=== PATIENT | male | born 1950 | race Caucasian/White ===

== ENCOUNTER → 2016-04-24 | Outpatient (CLI) | payer MEDICARE ==
[~2016-04-24] VITALS: Ht 162.6 cm; Wt 98.1 kg
[~2016-04-24] MED LIST: AUD NEB; IPRNEB NEB; PRED20 PO
[2016-04-24 09:08] VITALS: BP 138/82
== END | disposition home or self-care (01) ==
LOC: SRCNTR 09:05
PROVIDERS: ATTEND Internal Medicine
DX: J44.9 Chronic obstructive pulmonary disease, unspecified (principal); R79.81 Abnormal blood-gas level; Z57.2 Occupational exposure to dust
CPT/HCPCS: G0463

== ENCOUNTER → 2016-04-25 | Outpatient (CLI) | payer MEDICARE ==
[2016-04-25 10:38] LABS: ABG A-A DIFF O2 6.3 mmHg (10-20.0); ABG HCO3 25.4 mmol/L (22.0-26.0); ABG OXYHEMOGLOBIN 96.9 % (94.0-100.0); ABG PCO2 40 mmHg (35-45); ABG PH 7.425 (7.35-7.450); ALLEN TEST, BLOOD GAS Positive; TEMPERATURE, FAHRENHEIT, BG 98.6 FAHREN (96.0-98.6)
== END | disposition home or self-care (01) ==
LOC: RESP 10:19
PROVIDERS: ATTEND Internal Medicine
DX: J44.9 Chronic obstructive pulmonary disease, unspecified (principal); Z57.2 Occupational exposure to dust
CPT/HCPCS: 82805

== ENCOUNTER → 2016-07-03 | Outpatient (CLI) | payer MEDICARE ==
[~2016-07-03] VITALS: Ht 162.6 cm; Wt 80.5 kg
[2016-07-03 15:11] VITALS: BP 158/92
== END | disposition home or self-care (01) ==
LOC: SRCNTR 13:04
PROVIDERS: ATTEND Internal Medicine
DX: J44.9 Chronic obstructive pulmonary disease, unspecified (principal); J96.10 Chronic respiratory failure, unspecified whether with hypoxia or hypercapnia; I10 Essential (primary) hypertension; Z99.81 Dependence on supplemental oxygen; Z79.52 Long term (current) use of systemic steroids; Z57.1 Occupational exposure to radiation
CPT/HCPCS: G0463

== ENCOUNTER → 2016-10-02 | Outpatient (CLI) | payer MEDICARE ==
[~2016-10-02] VITALS: Ht 162.6 cm; Wt 83.0 kg
[2016-10-02 12:43] VITALS: BP 144/80
== END | disposition home or self-care (01) ==
LOC: SRCNTR 12:27
PROVIDERS: ATTEND Internal Medicine
DX: J44.9 Chronic obstructive pulmonary disease, unspecified (principal); J96.10 Chronic respiratory failure, unspecified whether with hypoxia or hypercapnia; Z79.52 Long term (current) use of systemic steroids; Z99.81 Dependence on supplemental oxygen; Z77.012 Contact with and (suspected) exposure to uranium
CPT/HCPCS: G0463

== ENCOUNTER 2017-03-19 20:47 | Inpatient (IN) | payer MEDICARE ==
[~2017-03-19] VITALS: Ht 175.3 cm; Wt 78.8 kg
[2017-03-19] MEDS ORDERED: IPRATROPIUM BROMIDE 0.5 MG/2.5 ML NEB SOLUTION NEB ONE (21:00)
[2017-03-19] MEDS ORDERED: ALBUTEROL SULFATE 5 MG/ML 20 ML NEB SOLN [BULK] NEB ONE (21:00)
[2017-03-19] MEDS ORDERED: PRED5 PO (21:02)
[2017-03-19] MEDS ORDERED: CLON.2 PO (21:02)
[2017-03-19] MEDS ORDERED: METO50 PO (21:02)
[2017-03-19] MEDS ORDERED: ALBU8.5H8 IH (21:02)
[2017-03-19] MEDS ORDERED: HYDR-4069 PO (21:02)
[2017-03-19] MEDS ORDERED: 0.9% SODIUM CHLORIDE 5 ML NEB SOLUTION NEB ONE (21:05)
[2017-03-19 22:05] LABS: BASOPHILS % (AUTO) 0.3 % (0.0-2.0); EOSINOPHILS % (AUTO) 6.1 % (1.0-6.0); HEMATOCRIT 43.3 % (41-53); HEMOGLOBIN 14.7 g/dL (13.5-17.5); LYMPHOCYTES # (AUTO) 1.8 K/uL (1.0-4.8); LYMPHOCYTES % (AUTO) 25.6 % (22.0-44.0); MEAN CORPUSCULAR HEMOGLOBIN 31.3 pg (26.0-34.0); MEAN CORPUSCULAR VOLUME 92 fL (80-100); MONOCYTES # (AUTO) 0.8 K/uL (0.1-1.0); NEUTROPHILS # (AUTO) 3.9 K/uL (1.8-7.7); PLATELET COUNT (AUTO) 235 K/uL (150-450); RED CELL DISTRIBUTION WIDTH 14.1 % (11.5-14.5)
[2017-03-19 22:14] LABS: ANION GAP 11 mmol/L (8-16); CALCIUM, TOTAL 9.6 mg/dL (8.8-10.5); CARBON DIOXIDE 27 mmol/L (22-29); CHLORIDE 99 mmol/L (98-107); CREATININE 0.86 mg/dL (0.60-1.30); GLOMERULAR FILTR. RATE CALC > 60 mL/min (>60); GLUCOSE,RANDOM 77 mg/dL (70-110); POTASSIUM 3.6 mmol/L (3.5-5.1); SODIUM SERUM 137 mmol/L (136-145); UREA NITROGEN, BLOOD 7 mg/dL (7-18)
[2017-03-19 22:21] LABS: ALANINE AMINOTRANSFERASE 25 U/L (12-78); ALBUMIN 4.5 g/dL (3.4-5.0); ALKALINE PHOSPHATASE 66 U/L (46-116); ASPARTATE AMINOTRANSFERASE 19 U/L (15-37); BILIRUBIN,TOTAL 0.8 mg/dL (0.1-1.0); TOTAL PROTEIN, SERUM 7.8 g/dL (6.4-8.2)
[2017-03-19 22:41] LABS: B-TYPE NATRIURETIC PEPTIDE 16 pg/mL (0-100)
[2017-03-19] MEDS ORDERED: MAGNESIUM HYDROXIDE SUSPENSION 30 ML UDCUP PO PRN (22:45)
[2017-03-19] MEDS ORDERED: ACETAMINOPHEN 325 MG TABLET PO PRN (22:45)
[2017-03-19] MEDS: ALBUTEROL SULFATE 2.5 MG/0.5 ML NEB SOLUTION NEB SCH (22:49)
[2017-03-19] MEDS: IPRATROPIUM BROMIDE 0.5 MG/2.5 ML NEB SOLUTION NEB SCH (22:49)
[2017-03-19] MEDS: CefTRIAXone 1 GM/DEXTROSE 50 ML IV SCH (23:09)
[2017-03-20] VITALS (7 sets, daily range): BP systolic 127–155; BP diastolic 70–95
[2017-03-20] MEDS: AZITHROMYCIN 500 MG/NS 250 ML IV SCH (01:17)
[2017-03-20] MEDS: MethylPREDNISolone SOD SUCC 125 MG/2 ML VIAL IVP SCH ×5 (01:20→23:37)
[2017-03-20] MEDS: HEPARIN SODIUM,PORCINE 5,000 UNITS/ML VIAL SQ SCH ×5 (01:21→23:37)
[2017-03-20] MEDS: ALBUTEROL SULFATE 2.5 MG/0.5 ML NEB SOLUTION NEB SCH ×6 (02:05→22:59)
[2017-03-20] MEDS: IPRATROPIUM BROMIDE 0.5 MG/2.5 ML NEB SOLUTION NEB SCH ×6 (02:05→22:59)
[2017-03-20] MEDS ORDERED: INFLUENZA VIRUS VACCINE QVS 2017-18 (3YR+)/PF 60 MCG/0.5 ML SYRINGE IM ONE (07:00)
[2017-03-20] MEDS: CloNIDine HCL 0.1 MG TABLET PO SCH ×2 (08:15→20:37)
[2017-03-20] MEDS: DOCUSATE SODIUM 100 MG CAPSULE PO SCH ×2 (08:15→20:38)
[2017-03-20] MEDS: PANTOPRAZOLE SODIUM 40 MG DR TABLET PO SCH (08:16)
[2017-03-20] MEDS: ASPIRIN 81 MG CHEWABLE TABLET PO SCH (08:18)
[2017-03-20] MEDS ORDERED: MONTELUKAST SODIUM 10 MG TABLET PO SCH (09:00)
[2017-03-20 09:51] LABS: PROTHROMBIN TIME 10.7 SEC (9.4-11.6)
[2017-03-20] MEDS: MONTELUKAST SODIUM 10 MG TABLET PO SCH (10:41)
[2017-03-20] MEDS: METOPROLOL TARTRATE 50 MG TABLET PO SCH (14:41)
[2017-03-20] MEDS: HYDROCODONE/ACETAMINOPHEN 5-325 MG TABLET PO PRN ×2 (14:43→23:38)
[2017-03-20] MEDS ORDERED: IOVERSOL 350 MG/ML 100 ML VIAL ONE (20:47)
[2017-03-20] MEDS: BUDESONIDE 0.5 MG/2 ML NEB SOLUTION NEB SCH (22:59)
[2017-03-20] MEDS ORDERED: SODIUM CHLORIDE 0.9% 250 ML IV ONE (23:06)
[2017-03-20] MEDS: CefTRIAXone 1 GM/DEXTROSE 50 ML IV SCH (23:37)
[2017-03-21] VITALS (7 sets, daily range): BP systolic 123–147; BP diastolic 66–92
[2017-03-21] MEDS: AZITHROMYCIN 500 MG/NS 250 ML IV SCH (00:52)
[2017-03-21] MEDS: ALBUTEROL SULFATE 2.5 MG/0.5 ML NEB SOLUTION NEB SCH ×6 (02:50→22:55)
[2017-03-21] MEDS: IPRATROPIUM BROMIDE 0.5 MG/2.5 ML NEB SOLUTION NEB SCH ×6 (02:50→22:55)
[2017-03-21] MEDS: HYDROCODONE/ACETAMINOPHEN 5-325 MG TABLET PO PRN ×3 (06:21→19:54)
[2017-03-21] MEDS: MethylPREDNISolone SOD SUCC 125 MG/2 ML VIAL IVP SCH ×4 (06:21→23:25)
[2017-03-21] MEDS: BUDESONIDE 0.5 MG/2 ML NEB SOLUTION NEB SCH ×2 (07:44→19:03)
[2017-03-21] MEDS: HEPARIN SODIUM,PORCINE 5,000 UNITS/ML VIAL SQ SCH ×4 (08:00→23:31)
[2017-03-21] MEDS: CloNIDine HCL 0.1 MG TABLET PO SCH ×2 (08:45→20:49)
[2017-03-21] MEDS: DOCUSATE SODIUM 100 MG CAPSULE PO SCH ×2 (08:45→20:49)
[2017-03-21] MEDS: ASPIRIN 81 MG CHEWABLE TABLET PO SCH (08:45)
[2017-03-21] MEDS: PANTOPRAZOLE SODIUM 40 MG DR TABLET PO SCH (08:46)
[2017-03-21] MEDS: METOPROLOL TARTRATE 50 MG TABLET PO SCH (08:46)
[2017-03-21] MEDS: MONTELUKAST SODIUM 10 MG TABLET PO SCH (08:46)
[2017-03-21] MEDS: HYDROCODONE/CHLORPHEN POLIS 10-8 MG/5 ML ORAL.SYG PO PRN (17:13)
[2017-03-21] MEDS: CefTRIAXone 1 GM/DEXTROSE 50 ML IV SCH (23:25)
[2017-03-22] VITALS (7 sets, daily range): BP systolic 123–151; BP diastolic 69–90
[2017-03-22] MEDS: AZITHROMYCIN 500 MG/NS 250 ML IV SCH (00:46)
[2017-03-22] MEDS: HYDROCODONE/CHLORPHEN POLIS 10-8 MG/5 ML ORAL.SYG PO PRN ×3 (01:44→19:36)
[2017-03-22] MEDS: ALBUTEROL SULFATE 2.5 MG/0.5 ML NEB SOLUTION NEB SCH ×6 (03:39→23:05)
[2017-03-22] MEDS: IPRATROPIUM BROMIDE 0.5 MG/2.5 ML NEB SOLUTION NEB SCH ×6 (03:39→23:05)
[2017-03-22] MEDS: HYDROCODONE/ACETAMINOPHEN 5-325 MG TABLET PO PRN ×3 (04:44→22:08)
[2017-03-22] MEDS: MethylPREDNISolone SOD SUCC 125 MG/2 ML VIAL IVP SCH ×3 (05:31→17:25)
[2017-03-22] MEDS: BUDESONIDE 0.5 MG/2 ML NEB SOLUTION NEB SCH ×2 (07:16→19:08)
[2017-03-22] MEDS: HEPARIN SODIUM,PORCINE 5,000 UNITS/ML VIAL SQ SCH ×2 (08:00→15:20)
[2017-03-22] MEDS: MONTELUKAST SODIUM 10 MG TABLET PO SCH (08:02)
[2017-03-22] MEDS: CloNIDine HCL 0.1 MG TABLET PO SCH ×2 (08:02→20:30)
[2017-03-22] MEDS: DOCUSATE SODIUM 100 MG CAPSULE PO SCH ×2 (08:02→20:29)
[2017-03-22] MEDS: PANTOPRAZOLE SODIUM 40 MG DR TABLET PO SCH (08:02)
[2017-03-22] MEDS: ASPIRIN 81 MG CHEWABLE TABLET PO SCH (08:02)
[2017-03-22] MEDS: METOPROLOL TARTRATE 50 MG TABLET PO SCH (08:05)
[2017-03-22] MEDS: BENZONATATE 100 MG CAPSULE PO SCH (18:35)
[2017-03-22] MEDS ORDERED: SODIUM CHLORIDE 0.9% 250 ML IV ONE (21:59)
[2017-03-22] MEDS: CefTRIAXone SODIUM 1 GM/VIAL IVP SCH (22:09)
[2017-03-23] VITALS (7 sets, daily range): BP systolic 141–178; BP diastolic 79–90
[2017-03-23] MEDS: AZITHROMYCIN 500 MG/NS 250 ML IV SCH ×2 (00:13→23:51)
[2017-03-23] MEDS: MethylPREDNISolone SOD SUCC 125 MG/2 ML VIAL IVP SCH ×5 (00:14→23:47)
[2017-03-23] MEDS: BENZONATATE 100 MG CAPSULE PO SCH ×4 (00:14→23:45)
[2017-03-23] MEDS: ALBUTEROL SULFATE 2.5 MG/0.5 ML NEB SOLUTION NEB SCH ×6 (03:00→23:00)
[2017-03-23] MEDS: IPRATROPIUM BROMIDE 0.5 MG/2.5 ML NEB SOLUTION NEB SCH ×6 (03:00→23:00)
[2017-03-23] MEDS: CloNIDine HCL 0.1 MG TABLET PO SCH ×2 (05:02→22:31)
[2017-03-23] MEDS: HYDROCODONE/ACETAMINOPHEN 5-325 MG TABLET PO PRN ×3 (05:02→23:46)
[2017-03-23] MEDS: HYDROCODONE/CHLORPHEN POLIS 10-8 MG/5 ML ORAL.SYG PO PRN ×3 (06:07→22:42)
[2017-03-23] MEDS: PANTOPRAZOLE SODIUM 40 MG DR TABLET PO SCH (08:42)
[2017-03-23] MEDS: METOPROLOL TARTRATE 50 MG TABLET PO SCH (08:42)
[2017-03-23] MEDS: ASPIRIN 81 MG CHEWABLE TABLET PO SCH (08:42)
[2017-03-23] MEDS: HEPARIN SODIUM,PORCINE 5,000 UNITS/ML VIAL SQ SCH ×4 (08:43→23:47)
[2017-03-23] MEDS: MONTELUKAST SODIUM 10 MG TABLET PO SCH (08:43)
[2017-03-23] MEDS: DOCUSATE SODIUM 100 MG CAPSULE PO SCH ×2 (08:43→22:31)
[2017-03-23] MEDS: BUDESONIDE 0.5 MG/2 ML NEB SOLUTION NEB SCH ×2 (10:26→19:01)
[2017-03-23] MEDS: CefTRIAXone SODIUM 1 GM/VIAL IVP SCH (22:33)
[2017-03-24] MEDS: ALBUTEROL SULFATE 2.5 MG/0.5 ML NEB SOLUTION NEB SCH ×6 (03:00→23:07)
[2017-03-24] MEDS: IPRATROPIUM BROMIDE 0.5 MG/2.5 ML NEB SOLUTION NEB SCH ×6 (03:00→23:08)
[2017-03-24 03:37] VITALS: BP 164/79
[2017-03-24] MEDS: MethylPREDNISolone SOD SUCC 125 MG/2 ML VIAL IVP SCH ×3 (06:30→18:10)
[2017-03-24 07:11] VITALS: BP 161/85
[2017-03-24] MEDS: HYDROCODONE/CHLORPHEN POLIS 10-8 MG/5 ML ORAL.SYG PO PRN ×2 (07:43→15:48)
[2017-03-24] MEDS: BUDESONIDE 0.5 MG/2 ML NEB SOLUTION NEB SCH ×2 (07:49→19:13)
[2017-03-24] MEDS: DOCUSATE SODIUM 100 MG CAPSULE PO SCH ×2 (07:52→19:45)
[2017-03-24] MEDS: ASPIRIN 81 MG CHEWABLE TABLET PO SCH (07:52)
[2017-03-24] MEDS: CloNIDine HCL 0.1 MG TABLET PO SCH ×2 (07:52→19:45)
[2017-03-24] MEDS: PANTOPRAZOLE SODIUM 40 MG DR TABLET PO SCH (07:53)
[2017-03-24] MEDS: MONTELUKAST SODIUM 10 MG TABLET PO SCH (07:53)
[2017-03-24] MEDS: BENZONATATE 100 MG CAPSULE PO SCH ×2 (07:53→15:49)
[2017-03-24] MEDS: HEPARIN SODIUM,PORCINE 5,000 UNITS/ML VIAL SQ SCH ×2 (07:53→15:48)
[2017-03-24] MEDS: HYDROCODONE/ACETAMINOPHEN 5-325 MG TABLET PO PRN ×3 (08:01→21:56)
[2017-03-24] MEDS: METOPROLOL TARTRATE 50 MG TABLET PO SCH (09:00)
[2017-03-24 11:05] VITALS: BP 155/78
[2017-03-24 15:23] VITALS: BP 167/91
[2017-03-24 19:27] VITALS: BP 177/95
[2017-03-24 21:54] VITALS: BP 162/87
[2017-03-24] MEDS ORDERED: CefTRIAXone SODIUM 1 GM in DEXTROSE 5%-WATER 10 ML IV SCH (22:00)
[2017-03-25] MEDS ORDERED: SODIUM CHLORIDE 0.9% 250 ML IV ONE (00:16)
[2017-03-25] MEDS: HYDROCODONE/CHLORPHEN POLIS 10-8 MG/5 ML ORAL.SYG PO PRN ×2 (00:24→08:27)
[2017-03-25] MEDS: BENZONATATE 100 MG CAPSULE PO SCH ×2 (00:24→07:56)
[2017-03-25] MEDS: AZITHROMYCIN 500 MG/NS 250 ML IV SCH (00:24)
[2017-03-25] MEDS: MethylPREDNISolone SOD SUCC 125 MG/2 ML VIAL IVP SCH ×2 (00:24→05:51)
[2017-03-25 00:27] VITALS: BP 151/84
[2017-03-25] MEDS: ALBUTEROL SULFATE 2.5 MG/0.5 ML NEB SOLUTION NEB SCH ×3 (02:57→11:36)
[2017-03-25] MEDS: IPRATROPIUM BROMIDE 0.5 MG/2.5 ML NEB SOLUTION NEB SCH ×3 (02:57→11:36)
[2017-03-25 04:00] VITALS: BP 153/89
[2017-03-25] MEDS: HYDROCODONE/ACETAMINOPHEN 5-325 MG TABLET PO PRN ×2 (05:51→12:14)
[2017-03-25 07:13] VITALS: BP_SYST 173; BP_SYST 181; BP_DIAS 87; BP_DIAS 95
[2017-03-25] MEDS: DOCUSATE SODIUM 100 MG CAPSULE PO SCH (07:56)
[2017-03-25] MEDS: MONTELUKAST SODIUM 10 MG TABLET PO SCH (07:56)
[2017-03-25] MEDS: PANTOPRAZOLE SODIUM 40 MG DR TABLET PO SCH (07:57)
[2017-03-25] MEDS: ASPIRIN 81 MG CHEWABLE TABLET PO SCH (07:57)
[2017-03-25] MEDS: METOPROLOL TARTRATE 50 MG TABLET PO SCH (07:57)
[2017-03-25] MEDS: CloNIDine HCL 0.1 MG TABLET PO SCH (07:57)
[2017-03-25] MEDS: HEPARIN SODIUM,PORCINE 5,000 UNITS/ML VIAL SQ SCH ×2 (08:00)
[2017-03-25] MEDS: BUDESONIDE 0.5 MG/2 ML NEB SOLUTION NEB SCH (08:26)
[2017-03-25] MEDS ORDERED: PredniSONE 20 MG TABLET PO SCH (09:00)
[2017-03-25 10:38] VITALS: BP 146/80
== END 2017-03-25 15:00 | disposition home or self-care (01) | DRG 193 ==
LOC: EMS 20:48 → AHU 03-20 00:23 → 5N 03-20 12:35
PROVIDERS: ADMIT Internal Medicine; ATTEND Internal Medicine
PROC: 3E0234Z Introduction of Serum, Toxoid and Vaccine into Muscle, Percutaneous Approach (ICD-10-PCS; principal; 2017-03-20)
DX: J18.9 Pneumonia, unspecified organism (principal); J96.01 Acute respiratory failure with hypoxia; J44.0 Chronic obstructive pulmonary disease with (acute) lower respiratory infection; Z99.81 Dependence on supplemental oxygen; J44.1 Chronic obstructive pulmonary disease with (acute) exacerbation; J45.901 Unspecified asthma with (acute) exacerbation; G89.29 Other chronic pain; I10 Essential (primary) hypertension; M54.9 Dorsalgia, unspecified; J20.9 Acute bronchitis, unspecified; Z77.098 Contact with and (suspected) exposure to other hazardous, chiefly nonmedicinal, chemicals; F41.9 Anxiety disorder, unspecified; Z88.1 Allergy status to other antibiotic agents; Z88.8 Allergy status to other drugs, medicaments and biological substances; Z23 Encounter for immunization
CPT/HCPCS: 71250; 93005; 94640; 94644; 99291; J0456; J0696; J1644; J2930; J7050; J7060

== ENCOUNTER 2018-12-03 00:09 | Emergency (ER) | payer MEDICARE ==
[~2018-12-03] VITALS: Ht 165.1 cm; Wt 68.2 kg
[~2018-12-03 00:09] MED LIST changes: +ALBU8.5H8 IH; +CLON.2 PO; -IPRNEB NEB; +METO50 PO; -PRED20 PO
[2018-12-03] MEDS ORDERED: 0.9% SODIUM CHLORIDE 5 ML NEB SOLUTION NEB ONE (00:25)
[2018-12-03] MEDS ORDERED: IPRATROPIUM BROMIDE 0.5 MG/2.5 ML NEB SOLUTION NEB ONE (00:30)
[2018-12-03] MEDS ORDERED: ALBUTEROL SULFATE 5 MG/ML 20 ML NEB SOLN [BULK] NEB ONE (00:30)
[2018-12-03] MEDS ORDERED: MethylPREDNISolone SOD SUCC 125 MG/2 ML VIAL IVP ONE (01:00)
[2018-12-03 01:15] VITALS: BP 150/74
[2018-12-03 01:45] LABS: BASOPHILS % (AUTO) 0.8 % (0.0-2.0); HEMOGLOBIN 13.5 g/dL (13.5-17.5); LYMPHOCYTES % (AUTO) 14.9 % (22.0-44.0); MEAN CORPUSCULAR HEMOGLOBIN 30.7 pg (26.0-34.0); MEAN CORPUSCULAR HGB CONC 33.7 G/dL (31.0-37.0); MEAN CORPUSCULAR VOLUME 91 fL (80-100); MONOCYTES # (AUTO) 0.8 K/uL (0.1-1.0); NEUTROPHILS # (AUTO) 4.2 K/uL (1.8-7.7); NEUTROPHILS % (AUTO) 65.3 % (40.0-70.0); PLATELET COUNT (AUTO) 232 K/uL (150-450); RED BLOOD CELL COUNT(AUTO) 4.39 MIL/uL (4.50-5.90); RED CELL DISTRIBUTION WIDTH 14.4 % (11.5-14.5)
[2018-12-03 02:04] LABS: PROTHROMBIN TIME 10.1 SEC (9.4-11.6)
[2018-12-03 02:08] LABS: B-TYPE NATRIURETIC PEPTIDE 71 pg/mL (0-100)
[2018-12-03 02:12] LABS: ABG A-A DIFF O2 42.1 mmHg (10-20.0); ABG BASE EXCESS -1.4 mmol/L (-2.0-3.0); ABG CARBOXYHEMOGLOBIN 0.7 % (0.0-1.5); ABG HCO3 24.8 mmol/L (22.0-26.0); ABG METHEMOGLOBIN 0.1 % (0.0-1.5); ABG OXYGEN CONTENT 18.7 mL/dL (15.0-23.0); ABG OXYHEMOGLOBIN 98.2 % (94.0-100.0); ABG PCO2 24 mmHg (35-45); ABG PH 7.564 (7.35-7.450); ABG TOTAL HEMOGLOBIN 13.3 G/dL (12.0-18.0); PO2, ARTERIAL BG 180.1 mmHg (75.0-83.0); SOURCE, BLOOD GAS ARTERIAL; TEMPERATURE, FAHRENHEIT, BG 98.6 FAHREN (96.0-98.6)
[2018-12-03 02:20] LABS: ALANINE AMINOTRANSFERASE 9 U/L (12-78); ALBUMIN 4.3 g/dL (3.4-5.0); ALKALINE PHOSPHATASE 102 U/L (46-116); ANION GAP 9 mmol/L (8-16); ASPARTATE AMINOTRANSFERASE 13 U/L (15-37); BILIRUBIN,TOTAL 0.6 mg/dL (0.1-1.0); CALCIUM, TOTAL 9.1 mg/dL (8.8-10.5); CARBON DIOXIDE 27 mmol/L (22-29); CHLORIDE 102 mmol/L (98-107); CREATINE KINASE, TOTAL ONLY 82 U/L (39-308); GLOMERULAR FILTR. RATE CALC > 60 mL/min (>60); GLUCOSE,RANDOM 88 mg/dL (70-110); POTASSIUM 3.8 mmol/L (3.5-5.1); SODIUM SERUM 138 mmol/L (136-145); TOTAL PROTEIN, SERUM 7.3 g/dL (6.4-8.2); UREA NITROGEN, BLOOD 7 mg/dL (7-18)
[2018-12-03 02:22] LABS: O2 DEVICE,BLOOD GAS BIPAP (ROOM AIR); SITE, BLOOD GAS LFT RADIAL
[2018-12-03] MEDS ORDERED: AZITHROMYCIN 500 MG/NS 250 ML IV ONE (02:45)
[2019-01-20] MEDS ORDERED: PRED10TA3 PO (11:11)
== END 2018-12-03 04:17 | disposition left against medical advice (07) ==
LOC: EMS 00:09
DX: J44.1 Chronic obstructive pulmonary disease with (acute) exacerbation (principal); J96.90 Respiratory failure, unspecified, unspecified whether with hypoxia or hypercapnia; I10 Essential (primary) hypertension; F41.9 Anxiety disorder, unspecified; Z88.1 Allergy status to other antibiotic agents; Z91.041 Radiographic dye allergy status; Z88.8 Allergy status to other drugs, medicaments and biological substances; Z79.899 Other long term (current) drug therapy
CPT/HCPCS: 36415; 36600; 71045; 80053; 82550; 82805; 83880; 84484; 85025; 85610; 85730; 93005; 94644; 94660; 96365; 96375; 99291; J0456; J2930

== ENCOUNTER → 2019-05-10 | Outpatient (CLI) | payer MEDICARE ==
[~2019-05-10] MED LIST changes: -CLON.2 PO; +CLON0.2T2 PO; +PRED10TA3 PO
== END | disposition home or self-care (01) ==
LOC: RADMN 13:56
PROVIDERS: ATTEND Internal Medicine Critical Care Medicine
DX: J44.1 Chronic obstructive pulmonary disease with (acute) exacerbation (principal); Z57.1 Occupational exposure to radiation
CPT/HCPCS: 71250

== ENCOUNTER → 2019-11-11 | Outpatient (CLI) | payer MEDICARE ==
[~2019-11-11] MED LIST changes: -AUD NEB; +AZIT-84 PO; +IPRA4AER IH
== END | disposition home or self-care (01) ==
LOC: RADPV 14:58
DX: M43.17 Spondylolisthesis, lumbosacral region (principal); M54.2 Cervicalgia; M54.9 Dorsalgia, unspecified; M54.5 Low back pain; M25.78 Osteophyte, vertebrae; M43.12 Spondylolisthesis, cervical region
CPT/HCPCS: 72040; 72072; 72100